=== PATIENT | female | born 1960 | race African-American/Black ===

== ENCOUNTER 2018-02-25 08:48 | Inpatient (IN) | payer MEDICARE, MEDICAID ==
[~2018-02-25] VITALS: Ht 172.7 cm; Wt 108.9 kg
[2018-02-25 12:39] VITALS: BP 172/112
[2018-02-25] MEDS ORDERED: Enalaprilat 2.5mg/2ml Inj IV PRN (13:15)
[2018-02-25] MEDS ORDERED: Nitroglycerin Subl 0.4mg tab SL PRN (13:15)
[2018-02-25] MEDS ORDERED: Cyclobenzaprine 10mg Tab ORAL PRN (13:15)
[2018-02-25] MEDS ORDERED: Albuterol/Ipratropium 3ml neb HHN PRN (13:15)
[2018-02-25] MEDS ORDERED: Miralax 17gm pkt ORAL PRN (13:15)
[2018-02-25] MEDS ORDERED: dilTIAZem HCl 25mg/5ml Inj IV PRN (13:15)
[2018-02-25] MEDS ORDERED: LORazepam 0.5mg tab ORAL PRN (13:15)
--- NOTE | 2018-02-25 13:16 | Consultation ---
History of Present Illness General Date patient seen: Feb 25, 2018 Present Illness HPI 57 year old female with hx of HTN, COPD, intermittent compliance, felt numbness on right side of her face with some facial droop with arm and leg weakness, She was taken to [facility]. She had CT of head. Her BP was uncontrolled. [place] [facility] [place] Allergies: Coded Allergies: No Known Allergies (Unverified , 02/25/18) Medication History Scheduled Amlodipine Besylate* (Amlodipine Besylate*), 10 MG ORAL DAILY, (Reported) Fluticasone/Salmeterol (Advair 250-50 Diskus), 2 PUFF INH EVERY 12 HOURS, ( Reported) Furosemide* (Lasix*), 20 MG ORAL DAILY, (Reported) Gabapentin* (Gabapentin*), 300 MG ORAL THREE TIMES A DAY, (Reported) Potassium Chloride (Potassium Chloride), 10 MEQ ORAL DAILY, (Reported) Scheduled PRN Cyclobenzaprine Hcl* (Flexeril*), 10 MG ORAL THREE TIMES A DAY PRN for Muscle Spasm, (Reported) Hydrocodone Bit/Acetaminophen 5-325* ([place] 5-325*), 1 TAB ORAL Q4H PRN for For Pain, (Reported) Lorazepam* (Ativan*), 0.5 MG ORAL HS PRN for For Anxiety, (Reported) Patient History Healthcare decision maker Resuscitation status Advanced Directive on File Past Medical/Surgical History Past Medical/Surgical History: (1) Morbid obesity (2) COPD (chronic obstructive pulmonary disease) (3) Non-compliance Review of Systems All Other Systems: negative except mentioned in HPI Physical Exam General Appearance: WD/WN Lines, tubes and drains: peripheral HEENT: normocephalic, atraumatic Neck: non-tender, normal alignment Respiratory/Chest: chest wall non-tender, lungs clear Breasts: no masses Cardiovascular/Chest: normal peripheral pulses Abdomen: normal bowel sounds Genitourinary/Rectal: normal genital exam Extremities: normal range of motion Skin Exam: normal pigmentation Last 24 Hour Vital Signs Date Time Temp Pulse Resp B/P (MAP) Pulse Ox O2 Delivery O2 Flow Rate FiO2 02/25/18 12:39 97.7 70 20 172/112 (132) 98 97.7 02/25/18 12:39 Room Air Height (Feet): 5 Height (Inches): 8.00 Weight (Pounds): 241 Medications Current Medications Medications (Trade) Dose Ordered Sig/Re Route PRN Reason Start Time Stop Time Status Last Admin Dose Admin Acetaminophen (Tylenol) 650 mg Q4H PRN ORAL FEVER 02/25/18 13:15 03/27/18 13:14 UNV Albuterol/ Ipratropium (Albuterol/ Ipratropium) 3 ml EVERY 4 HOURS PRN HHN Shortness of Breath 02/25/18 13:15 03/02/18 13:14 UNV Amlodipine Besylate (Norvasc) 10 mg DAILY ORAL 02/26/18 09:00 03/28/18 08:59 Aspirin (ASA) 325 mg DAILY ORAL 02/26/18 09:00 03/28/18 08:59 Clonidine HCl (Catapres Tab) 0.1 mg Q6H PRN ORAL SBP>160 02/25/18 13:15 03/27/18 13:14 Cyclobenzaprine HCl (Flexeril) 10 mg TIDPRN PRN ORAL Muscle Spasm 02/25/18 13:15 03/27/18 13:14 Diltiazem HCl (Cardizem) 10 mg EVERY HOUR PRN IV heart rate more than 120, 02/25/18 13:15 03/27/18 13:14 UNV Enalaprilat (Vasotec) 2.5 mg EVERY 6 HOURS PRN IV sbp more than 160 02/25/18 13:15 03/27/18 13:14 UNV Furosemide (Lasix) 20 mg DAILY ORAL 02/26/18 09:00 03/28/18 08:59 Gabapentin (Neurontin) 300 mg THREE TIMES A DAY ORAL 02/25/18 18:00 03/27/18 17:59 Heparin Sodium (Porcine) (Heparin 5000 units/ml) 5,000 units EVERY 12 HOURS SUBQ 02/25/18 21:00 03/27/18 20:59 UNV Heparin Sodium (Porcine) (Heparin 5000 units/ml) 5,000 units EVERY 8 HOURS SUBQ 02/25/18 14:00 03/27/18 13:59 Irbesartan (Avapro) 80 mg DAILY ORAL 02/25/18 13:15 03/27/18 13:14 UNV Labetalol HCl (Normodyne) 20 mg EVERY HOUR PRN IV sbp more than 160 02/25/18 13:15 03/27/18 13:14 UNV Lorazepam (Ativan) 0.5 mg HSPRN PRN ORAL For Anxiety 02/25/18 13:15 03/04/18 13:14 Nitroglycerin (Ntg) 0.4 mg Every 5 Minutes PRN SL Prn Chest Pain 02/25/18 13:15 03/27/18 13:14 UNV Ondansetron HCl (Zofran) 4 mg Q6H PRN IVP Nausea & Vomiting 02/25/18 13:15 03/27/18 13:14 UNV Pantoprazole (Protonix) 40 mg DAILY ORAL 02/26/18 09:00 03/28/18 08:59 UNV Polyethylene Glycol (Miralax) 17 gm DAILYPRN PRN ORAL Constipation 02/25/18 13:15 03/27/18 13:14 UNV Salmeterol Xinafoate/ Fluticasone (Advair 250/50 Diskus) 1 puffs BID INH 02/25/18 18:00 03/27/18 17:59 Temazepam (Restoril) 15 mg HSPRN PRN ORAL Insomnia 02/25/18 13:15 03/04/18 13:14 UNV Assessment/Plan Problem List: (1) Hypertensive emergency ICD Codes: I16.1 - Hypertensive emergency SNOMED: 958487772080690 (2) TIA (transient ischemic attack) ICD Codes: G45.9 - Transient cerebral ischemic attack, unspecified SNOMED: 537302355 (3) Non-compliance ICD Codes: Z91.19 - Patient's noncompliance with other medical treatment and regimen SNOMED: 1915268 (4) COPD (chronic obstructive pulmonary disease) ICD Codes: J44.9 - Chronic obstructive pulmonary disease, unspecified SNOMED: 37296321 (5) Hypertension ICD Codes: I10 - Essential (primary) hypertension SNOMED: 60800825 (6) Morbid obesity ICD Codes: E66.01 - Morbid (severe) obesity due to excess calories SNOMED: 984061957 Assessment/Plan echo monitor BP respiratory treatment check electrolytes cardio f/u neuro evaluation. Charisse Manriquez MD Feb 25, 2018 13:16
[2018-02-25] MEDS ORDERED: Heparin 5000 units/ml inj SUBQ SCH (14:00)
[2018-02-25] MEDS ORDERED: CYCLOBENZAPRINE10 MG ORAL (14:26)
[2018-02-25] MEDS ORDERED: ADVAIR 250/501 PUFFS INH (14:26)
[2018-02-25] MEDS ORDERED: AMLODIPINE BESY10 MG ORAL (14:26)
[2018-02-25] MEDS ORDERED: NORCO 5-325 TA1 EACH ORAL (14:26)
[2018-02-25] MEDS ORDERED: POTASSIUM CHLO10 ME3 ORAL (14:26)
[2018-02-25] MEDS ORDERED: ATIVAN0.5 MG ORAL (14:26)
[2018-02-25] MEDS ORDERED: GABAPENTIN300 MG ORAL (14:26)
[2018-02-25] MEDS ORDERED: FUROSEMIDE20 M1 ORAL (14:26)
--- NOTE | 2018-02-25 16:17 | Diagnostic Imaging Report ---
Indication: Heaviness and weakness on the right side of face x7 days Technique: sagittal T1 fast spin echo, axial T1 FLAIR, axial T2 FLAIR, axial T2 FS PROPELLER, axial T2* GRE, axial diffusion weighted images. ADC and exponential ADC maps generated Comparison: none Findings: Metallic objects within the patient's hair apparently could not be removed, results in susceptibility artifact that obscures significant portions of nearly every sequence On the diffusion-weighted images, much of the left frontal lobe, most of the left temporal and parietal lobes, all of the left occipital lobe, and all of the left side of the cerebellum are obscured. In the visualized portions of the brain, no evidence of restricted diffusion is demonstrated. Artifact obscures much of the right cerebellum and left frontal lobe on the T2*images. Visualized portions demonstrate no evidence of acute hemorrhage or blood products. The inferior brain is partially obscured on the T1 and T2 FLAIR images, but no evidence of acute hemorrhage is evident. Artifact obscures much of the left cerebellum and brainstem, left temporal and parietal lobes and a portion of the bilateral frontal lobes on the T2-weighted images. The visualized portions of the brain demonstrate a lacunar infarct in the left edith, best appreciated on the T2 FLAIR images. No gross mass effect or midline shift or edema. Grossly normal size ventricles and extra axial CSF spaces. Empty sella is incidentally noted. Visualized orbits and sinuses are unremarkable. Impression: Extremely limited exam due to complete or near complete obscuration of much of the brain due to susceptibility artifact from metallic and apparently unremarkable hair objects. Significant pathology could be missed Visible portions of the brain demonstrate old lacunar infarct in the left side of the edith Visible portions of brain demonstrate no evidence of acute intracranial hemorrhage, edema, or infarct Incidental finding of empty sella
[2018-02-25] MEDS ORDERED: Norco 5mg/325mg tab ORAL PRN (16:45)
[2018-02-25 18:06] VITALS: BP 127/97
[2018-02-25] MEDS ORDERED: Labetalol 5mg/ml 20ml vial IV PRN (18:30)
[2018-02-25] MEDS: Advair 250/50 Inhaler - 14 dose INH SCH (19:08)
[2018-02-25 20:00] VITALS: BP 148/91
[2018-02-25] MEDS: Heparin 5000 units/ml inj SUBQ SCH (20:55)
--- NOTE | 2018-02-25 21:00 | Cardiology Progress Note ---
Assessment/Plan Assessment/Plan [id number] increas lisinopril keeop on nrovasc dc avodart may need clonidien or bb consider mcmanus for secondary htn including sleep study to ro eusebia Objective Last 24 Hour Vital Signs Date Time Temp Pulse Resp B/P (MAP) Pulse Ox O2 Delivery O2 Flow Rate FiO2 02/25/18 19:10 79 18 97 Room Air 21 02/25/18 19:08 78 18 97 Room Air 21 02/25/18 19:08 78 18 Room Air 21 02/25/18 18:06 97.7 72 20 127/97 (107) 98 97.7 02/25/18 15:47 85 02/25/18 14:06 172/112 02/25/18 13:15 172/112 02/25/18 12:39 97.7 70 20 172/112 (132) 98 97.7 02/25/18 12:39 Room Air 02/25/18 12:17 76 Laboratory Tests Test 02/25/18 16:35 Troponin I 0.003 ng/mL (0.000-0.056) Sang Valles MD Feb 25, 2018 21:00
[2018-02-25] MEDS: Lisinopril 20mg tab ORAL SCH (22:00)
[2018-02-26] VITALS: BP 126/92
[2018-02-26 04:00] VITALS: BP 121/63
--- NOTE | 2018-02-26 04:30 | Consultation ---
DATE OF CONSULTATION: 02/25/2018 CARDIOLOGY CONSULTATION CONSULTING PHYSICIAN: Sang Valles M.D. REFERRING PHYSICIAN: Yariel Bhandari M.D. REASON FOR REFERRAL: Poorly-controlled hypertension. HISTORY OF PRESENT ILLNESS: This is an elderly female, who has noticed for the past week and a half or so that she has had some right-sided facial, arm, and leg numbness. She said occasionally she has to hold herself when she walks because she feels off balance and occasionally when she is standing up washing dishes, she feels that her right leg starts to shake. In any case, the patient was seen by Dr. Bhandari and was eventually sent to an emergency room and went to [facility], which was too busy, and she decided to leave and went to [place] where she was admitted yesterday, evaluated, and subsequently transferred to [facility] for further therapy. 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 She walks, but she does notice that when she goes up hills for her home, she has some shortness of breath. There is no pain, pressure, or tightness. There is no PND, no orthopnea, no palpitations, and no lightheadedness on standing. PAST MEDICAL HISTORY: Positive for high blood pressure. No history of heart attack, cancer, stroke, diabetes, or cholesterol problems. No hepatitis or tuberculosis. She does have a history of possible COPD. No history of ulcers. No kidney problems, liver problems, or thyroid problems. She has a history of sickle cell trait. No HIV, AIDS, or blood clots or bleeding disorders of any kind or any gynecological problems. She has had surgeries including vaginal deliveries and a tubal ligation. MEDICATIONS: Albuterol inhaler. She is on amlodipine 10 mg daily, Zithromax, cyclobenzaprine, Benadryl, Advair Diskus, Lasix 20 mg daily, gabapentin 300 mg three times daily, hydrochlorothiazide 50 mg once daily, [place], cortisone, lisinopril 20 mg daily, lorazepam 0.5 mg at nighttime as needed, meloxicam 15 mg, Naprosyn 500 mg two times daily, potassium, and promethazine. ALLERGIES: None. SOCIAL HISTORY: She smokes, but she quit approximately one year ago, and she does drink alcoholic beverages rarely. No drug use. REVIEW OF SYSTEMS: GASTROINTESTINAL: Negative. GENITOURINARY: Negative. PULMONARY: Negative. CONSTITUTIONAL: Negative. NEUROLOGIC: As mentioned in the HPI. There is no paralysis. No blurred vision or double vision, unless she looks to the extreme right. PHYSICAL EXAMINATION: GENERAL: Shows to be obese elderly female, in no respiratory distress. HEENT: Unremarkable. NECK: Supple. No jugular venous distention. No abdominojugular reflux noted. LUNGS: Appeared to be clear to auscultation and percussion. CARDIAC: Regular rate and rhythm. No heaves or thrills noted. ABDOMEN: Soft and nontender. Positive bowel sounds. EXTREMITIES: There is no clubbing, cyanosis, or edema. NEUROLOGIC: She moves all four extremities. LABORATORY VALUES AND DIAGNOSTIC DATA: Data from [place] was reviewed. She had probably a CT scan of her brain, basically no significant mass effects were being noted. Chest x-ray shows lungs are clear. No pleural effusion was seen. Cardiac versus mediastinal silhouette was normal. Her blood pressure, however, at [place] they ranged anywhere between 251/153 to 142/88, subsequently uncontrolled of her blood pressure. Troponin was 0.03 so far. An EKG was performed at [place] that is showing sinus rhythm, leftward axis progression. Unfortunately, I am not able to find any other meaningful labs. She had an INR of 1 and troponin was 0.02 at [place]. Creatinine is 0.83, glucose of 107, sodium 137, potassium 3.7, chloride 101, bicarb 26, and BUN of 17. ASSESSMENT: 1. Hypertensive emergency. 2. Poorly-controlled hypertension. 3. Obesity. 4. History of sickle cell trait. 5. COPD history with occasional wheezing. PLAN: Dr. Bhandari, this patient was seen in cardiac consultation. The patient's medications have been reviewed. The patient should be continued on Norvasc 10 mg a day. She is getting a higher dose of Lasix at home to be continued. She is on lisinopril 20 mg, if not been effective, I would discontinue the Avapro that she is getting through and put her on some lisinopril 40 mg daily. Her heart rate is not significantly tachycardic, may require administration of beta-blockers and/or clonidine for control. As outpatient, she may require further evaluation for the cause of her hypertension that appears to be poorly controlled. She should be discontinued off the non-steroidals if possible and should be considered for evaluation of possible sleep disorder such as sleep apnea, which may be contributing to her hypertension. Control of blood pressure with the combination of medications is important. This was discussed with the patient. Sang Valles M.D. DR: GURVINDER JOB#: [id number] CC:
[2018-02-26 07:17] LABS: BASOPHILS % (AUTO) 1.2 % (0.0-2.0); EOSINOPHILS % (AUTO) 5.3 % (0.0-3.0); HEMATOCRIT 43.8 % (37.0-47.0); HEMOGLOBIN 14.4 G/DL (12.0-16.0); LYMPHOCYTES % (AUTO) 41.6 % (20.0-45.0); MEAN CORPUSCULAR VOLUME 88 FL (80-99); PLATELET COUNT 179 K/UL (150-450); RED BLOOD COUNT 4.98 M/UL (4.20-5.40); RED CELL DISTRIBUTION WIDTH 12.8 % (11.6-14.8); WHITE BLOOD COUNT 5.3 K/UL (4.8-10.8)
[2018-02-26 08:00] VITALS: BP 109/73
[2018-02-26] MEDS: Lisinopril 20mg tab ORAL SCH ×2 (08:37→17:25)
[2018-02-26] MEDS: Heparin 5000 units/ml inj SUBQ SCH ×2 (08:38→21:00)
[2018-02-26 08:52] LABS: ALANINE AMINOTRANSFERASE 22 U/L (12-78); ALBUMIN 3.5 G/DL (3.4-5.0); ALBUMIN/GLOBULIN RATIO 0.9 (1.0-2.7); ALKALINE PHOSPHATASE 81 U/L (46-116); ANION GAP 10 mmol/L (5-15); ASPARTATE AMINO TRANSFERASE 16 U/L (15-37); BILIRUBIN,TOTAL 0.5 MG/DL (0.2-1.0); BLOOD UREA NITROGEN 27 mg/dL (7-18); CALCIUM 9.5 MG/DL (8.5-10.1); CARBON DIOXIDE 28 MMOL/L (21-32); CHLORIDE 103 MMOL/L (98-107); CHOLESTEROL 206 MG/DL (< 200); CREATININE 1.2 MG/DL (0.55-1.30); HDL CHOLESTEROL 50 MG/DL (40-60); PHOSPHORUS 4.2 MG/DL (2.5-4.9); POTASSIUM 3.4 MMOL/L (3.5-5.1); SODIUM 141 MMOL/L (136-145); TRIGLYCERIDES 103 MG/DL (30-150)
[2018-02-26] MEDS: Advair 250/50 Inhaler - 14 dose INH SCH ×2 (09:32→19:25)
--- NOTE | 2018-02-26 10:42 | Consultation ---
History of Present Illness General Date patient seen: Feb 25, 2018 Present Illness HPI the pt is a 57 yo female, came in for right-sided facial, arm, and leg numbness. The pt stated that she only sleeps 45 min a day. the pt is on ativan and has anxiety and depression. the pt has no si/hi Allergies: Coded Allergies: No Known Allergies (Unverified , 02/25/18) Medication History Scheduled Amlodipine Besylate* (Amlodipine Besylate*), 10 MG ORAL DAILY, (Reported) Fluticasone/Salmeterol (Advair 250-50 Diskus), 2 PUFF INH EVERY 12 HOURS, ( Reported) Furosemide* (Lasix*), 20 MG ORAL DAILY, (Reported) Gabapentin* (Gabapentin*), 300 MG ORAL THREE TIMES A DAY, (Reported) Potassium Chloride (Potassium Chloride), 10 MEQ ORAL DAILY, (Reported) Scheduled PRN Cyclobenzaprine Hcl* (Flexeril*), 10 MG ORAL THREE TIMES A DAY PRN for Muscle Spasm, (Reported) Hydrocodone Bit/Acetaminophen 5-325* (Lillie 5-325*), 1 TAB ORAL Q4H PRN for For Pain, (Reported) Lorazepam* (Ativan*), 0.5 MG ORAL HS PRN for For Anxiety, (Reported) Patient History Limited by: medical condition History Provided By: Patient, Medical Record, PMD Healthcare decision maker Resuscitation status Advanced Directive on File Past Medical/Surgical History Past Medical/Surgical History: (1) Hypertension Review of Systems Psychiatric: Reports: prior hx, anxiety, depressed feelings Physical Exam General Appearance: no apparent distress, alert Neurologic: oriented x 3, responsive, depressed affect Last 24 Hour Vital Signs Date Time Temp Pulse Resp B/P (MAP) Pulse Ox O2 Delivery O2 Flow Rate FiO2 02/26/18 09:34 64 18 99 Room Air 21 02/26/18 09:32 64 18 98 Room Air 21 02/26/18 09:00 Room Air 02/26/18 08:37 109/73 02/26/18 08:37 63 109/73 02/26/18 08:00 97.9 63 20 109/73 (85) 96 97.9 02/26/18 08:00 63 02/26/18 06:27 126/67 02/26/18 04:00 62 02/26/18 04:00 97.5 62 18 121/63 (82) 96 97.5 02/26/18 00:00 97.1 65 18 126/92 (103) 97 97.1 02/26/18 00:00 68 02/25/18 22:02 156/95 02/25/18 22:00 156/95 02/25/18 21:00 Room Air 02/25/18 20:00 97.2 95 21 148/91 (110) 97 97.2 02/25/18 20:00 95 02/25/18 19:10 79 18 97 Room Air 21 02/25/18 19:08 78 18 97 Room Air 21 02/25/18 19:08 78 18 Room Air 21 02/25/18 18:06 97.7 72 20 127/97 (107) 98 97.7 02/25/18 15:47 85 02/25/18 14:06 172/112 02/25/18 13:15 172/112 02/25/18 12:39 97.7 70 20 172/112 (132) 98 97.7 02/25/18 12:39 Room Air 02/25/18 12:17 76 Intake and Output 02/25/18 02/26/18 19:00 07:00 Intake Total 600 ml 100 ml Balance 600 ml 100 ml Intake Oral 600 ml Other 100 ml # Voids 1 2 Laboratory Tests Test 02/25/18 16:35 02/26/18 06:05 Troponin I 0.003 ng/mL (0.000-0.056) 0.009 ng/mL (0.000-0.056) White Blood Count 5.3 K/UL (4.8-10.8) Red Blood Count 4.98 M/UL (4.20-5.40) Hemoglobin 14.4 G/DL (12.0-16.0) Hematocrit 43.8 % (37.0-47.0) Mean Corpuscular Volume 88 FL (80-99) Mean Corpuscular Hemoglobin 29.0 PG (27.0-31.0) Mean Corpuscular Hemoglobin Concent 33.0 G/DL (32.0-36.0) Red Cell Distribution Width 12.8 % (11.6-14.8) Platelet Count 179 K/UL (150-450) Mean Platelet Volume 9.4 FL (6.5-10.1) Neutrophils (%) (Auto) 45.0 % (45.0-75.0) Lymphocytes (%) (Auto) 41.6 % (20.0-45.0) Monocytes (%) (Auto) 7.0 % (1.0-10.0) Eosinophils (%) (Auto) 5.3 % (0.0-3.0) H Basophils (%) (Auto) 1.2 % (0.0-2.0) Prothrombin Time 10.5 SEC (9.30-11.50) Prothromb Time International Ratio 1.0 (0.9-1.1) Activated Partial Thromboplast Time 29 SEC (23-33) Sodium Level 141 MMOL/L (136-145) Potassium Level 3.4 MMOL/L (3.5-5.1) L Chloride Level 103 MMOL/L (98-107) Carbon Dioxide Level 28 MMOL/L (21-32) Anion Gap 10 mmol/L (5-15) Blood Urea Nitrogen 27 mg/dL (7-18) H Creatinine 1.2 MG/DL (0.55-1.30) Estimat Glomerular Filtration Rate 56.0 mL/min (>60) Glucose Level 105 MG/DL (74-106) Calcium Level 9.5 MG/DL (8.5-10.1) Phosphorus Level 4.2 MG/DL (2.5-4.9) Magnesium Level 2.0 MG/DL (1.8-2.4) Total Bilirubin 0.5 MG/DL (0.2-1.0) Aspartate Amino Transf (AST/SGOT) 16 U/L (15-37) Alanine Aminotransferase (ALT/SGPT) 22 U/L (12-78) Alkaline Phosphatase 81 U/L (46-116) C-Reactive Protein, Quantitative 2.8 mg/dL (0.00-0.90) H Total Protein 7.2 G/DL (6.4-8.2) Albumin 3.5 G/DL (3.4-5.0) Globulin 3.7 g/dL Albumin/Globulin Ratio 0.9 (1.0-2.7) L Triglycerides Level 103 MG/DL (30-150) Cholesterol Level 206 MG/DL (< 200) H LDL Cholesterol 135 mg/dL (<100) H HDL Cholesterol 50 MG/DL (40-60) Cholesterol/HDL Ratio 4.1 (3.3-4.4) Thyroid Stimulating Hormone (TSH) 0.715 uiU/mL (0.358-3.740) Height (Feet): 5 Height (Inches): 8.00 Weight (Pounds): 240 Medications Current Medications Medications (Trade) Dose Ordered Sig/Re Route PRN Reason Start Time Stop Time Status Last Admin Dose Admin Acetaminophen (Tylenol) 650 mg Q4H PRN ORAL FEVER 02/25/18 13:15 03/27/18 13:14 Acetaminophen/ Hydrocodone Bitart (Lillie 5/325) 1 tab Q6H PRN ORAL For Pain 02/25/18 16:45 03/04/18 16:44 Albuterol/ Ipratropium (Albuterol/ Ipratropium) 3 ml Q4H PRN HHN Shortness of Breath 02/25/18 13:15 03/02/18 13:14 Amlodipine Besylate (Norvasc) 10 mg DAILY ORAL 02/26/18 09:00 03/28/18 08:59 Aspirin (ASA) 325 mg DAILY ORAL 02/26/18 09:00 03/28/18 08:59 02/26/18 08:36 Clonidine HCl (Catapres Tab) 0.1 mg EVERY 8 HOURS ORAL 02/25/18 22:00 03/27/18 21:59 02/26/18 06:27 Clonidine HCl (Catapres Tab) 0.1 mg Q6H PRN ORAL SBP>160 02/25/18 13:15 03/27/18 13:14 Cyclobenzaprine HCl (Flexeril) 10 mg TIDPRN PRN ORAL Muscle Spasm 02/25/18 13:15 03/27/18 13:14 Diltiazem HCl (Cardizem) 10 mg Q1H PRN IV heart rate more than 120, 02/25/18 13:15 03/27/18 13:14 Furosemide (Lasix) 20 mg DAILY ORAL 02/26/18 09:00 03/28/18 08:59 02/26/18 08:37 Gabapentin (Neurontin) 300 mg THREE TIMES A DAY ORAL 02/25/18 18:00 03/27/18 17:59 02/26/18 08:36 Heparin Sodium (Porcine) (Heparin 5000 units/ml) 5,000 units EVERY 12 HOURS SUBQ 02/25/18 21:00 03/27/18 20:59 02/26/18 08:38 Hydralazine HCl (Apresoline) 10 mg Q4H PRN IV sbp greater than 170 02/25/18 21:00 03/27/18 20:59 Hydrochlorothiazide (Hydrodiuril) 25 mg DAILY ORAL 02/26/18 09:00 03/28/18 08:59 Lisinopril (Prinivil) 20 mg BID ORAL 02/25/18 21:00 03/27/18 20:59 02/25/18 22:00 Lorazepam (Ativan) 0.5 mg HSPRN PRN ORAL For Anxiety 02/25/18 13:15 03/04/18 13:14 Nitroglycerin (Ntg) 0.4 mg Q5M PRN SL Prn Chest Pain 02/25/18 13:15 03/27/18 13:14 Ondansetron HCl (Zofran) 4 mg Q6H PRN IVP Nausea & Vomiting 02/25/18 13:15 03/27/18 13:14 Pantoprazole (Protonix) 40 mg DAILY ORAL 02/26/18 09:00 03/28/18 08:59 02/26/18 08:35 Polyethylene Glycol (Miralax) 17 gm DAILYPRN PRN ORAL Constipation 02/25/18 13:15 03/27/18 13:14 Salmeterol Xinafoate/ Fluticasone (Advair 250/50 Diskus) 1 puffs BID INH 02/25/18 18:00 03/27/18 17:59 02/26/18 09:32 Temazepam (Restoril) 15 mg HSPRN PRN ORAL Insomnia 02/25/18 13:15 03/04/18 13:14 Assessment/Plan Assessment/Plan MDD Anxiety d/o Ativan prn the pt was reluctant to take ssris/ Yosi Lopez MD Feb 26, 2018 10:42
--- NOTE | 2018-02-26 18:56 | History & Physical ---
History and Physical History & Physicial Dictated for Int Med-Dr Edmonds no. [id number]. Fernando Morales MD Feb 26, 2018 18:56
[2018-02-26 20:00] VITALS: BP 134/76
--- NOTE | 2018-02-26 20:06 | Cardiology Progress Note ---
Assessment/Plan Assessment/Plan 1. Hypertensive emergency. 2. Poorly-controlled hypertension. 3. Obesity. 4. History of sickle cell trait. 5. COPD history with occasional wheezing bp much improved neuro sx have resolved importance of compliance with meds d/w pt risk of rebound htn d/w pt with risk of cva with uncontrolled htn she indicated understanding mri poor study statin? if complaince with med assured as outpt Subjective Cardiovascular: Denies: chest pain, irregular heart rate, lightheadedness, palpitations Respiratory: Denies: shortness of breath Gastrointestinal/Abdominal: Denies: abdominal pain Genitourinary: Denies: burning Objective Last 24 Hour Vital Signs Date Time Temp Pulse Resp B/P (MAP) Pulse Ox O2 Delivery O2 Flow Rate FiO2 02/26/18 19:28 66 16 96 Room Air 21 02/26/18 19:28 66 16 96 Room Air 21 02/26/18 17:25 109/73 02/26/18 16:00 61 02/26/18 13:21 109/73 02/26/18 12:00 74 02/26/18 09:34 64 18 99 Room Air 21 02/26/18 09:32 64 18 98 Room Air 21 02/26/18 09:00 Room Air 02/26/18 08:37 109/73 02/26/18 08:37 63 109/73 02/26/18 08:00 97.9 63 20 109/73 (85) 96 97.9 02/26/18 08:00 63 02/26/18 06:27 126/67 02/26/18 04:00 62 02/26/18 04:00 97.5 62 18 121/63 (82) 96 97.5 02/26/18 00:00 97.1 65 18 126/92 (103) 97 97.1 02/26/18 00:00 68 02/25/18 22:02 156/95 02/25/18 22:00 156/95 02/25/18 21:00 Room Air General Appearance: no apparent distress, alert Neck: supple Cardiovascular: normal rate Respiratory/Chest: lungs clear Abdomen: normal bowel sounds, soft Extremities: no swelling Intake and Output 02/25/18 02/26/18 19:00 07:00 Intake Total 600 ml 100 ml Balance 600 ml 100 ml Intake Oral 600 ml Other 100 ml # Voids 1 2 Laboratory Tests Test 02/26/18 06:05 02/26/18 15:05 White Blood Count 5.3 K/UL (4.8-10.8) Red Blood Count 4.98 M/UL (4.20-5.40) Hemoglobin 14.4 G/DL (12.0-16.0) Hematocrit 43.8 % (37.0-47.0) Mean Corpuscular Volume 88 FL (80-99) Mean Corpuscular Hemoglobin 29.0 PG (27.0-31.0) Mean Corpuscular Hemoglobin Concent 33.0 G/DL (32.0-36.0) Red Cell Distribution Width 12.8 % (11.6-14.8) Platelet Count 179 K/UL (150-450) Mean Platelet Volume 9.4 FL (6.5-10.1) Neutrophils (%) (Auto) 45.0 % (45.0-75.0) Lymphocytes (%) (Auto) 41.6 % (20.0-45.0) Monocytes (%) (Auto) 7.0 % (1.0-10.0) Eosinophils (%) (Auto) 5.3 % (0.0-3.0) H Basophils (%) (Auto) 1.2 % (0.0-2.0) Prothrombin Time 10.5 SEC (9.30-11.50) Prothromb Time International Ratio 1.0 (0.9-1.1) Activated Partial Thromboplast Time 29 SEC (23-33) Sodium Level 141 MMOL/L (136-145) Potassium Level 3.4 MMOL/L (3.5-5.1) L Chloride Level 103 MMOL/L (98-107) Carbon Dioxide Level 28 MMOL/L (21-32) Anion Gap 10 mmol/L (5-15) Blood Urea Nitrogen 27 mg/dL (7-18) H Creatinine 1.2 MG/DL (0.55-1.30) Estimat Glomerular Filtration Rate 56.0 mL/min (>60) Glucose Level 105 MG/DL (74-106) Calcium Level 9.5 MG/DL (8.5-10.1) Phosphorus Level 4.2 MG/DL (2.5-4.9) Magnesium Level 2.0 MG/DL (1.8-2.4) Total Bilirubin 0.5 MG/DL (0.2-1.0) Aspartate Amino Transf (AST/SGOT) 16 U/L (15-37) Alanine Aminotransferase (ALT/SGPT) 22 U/L (12-78) Alkaline Phosphatase 81 U/L (46-116) Troponin I 0.009 ng/mL (0.000-0.056) 0.018 ng/mL (0.000-0.056) C-Reactive Protein, Quantitative 2.8 mg/dL (0.00-0.90) H Total Protein 7.2 G/DL (6.4-8.2) Albumin 3.5 G/DL (3.4-5.0) Globulin 3.7 g/dL Albumin/Globulin Ratio 0.9 (1.0-2.7) L Triglycerides Level 103 MG/DL (30-150) Cholesterol Level 206 MG/DL (< 200) H LDL Cholesterol 135 mg/dL (<100) H HDL Cholesterol 50 MG/DL (40-60) Cholesterol/HDL Ratio 4.1 (3.3-4.4) Thyroid Stimulating Hormone (TSH) 0.715 uiU/mL (0.358-3.740) Sang Valles MD Feb 26, 2018 20:06
[2018-02-27] VITALS: BP 100/69
--- NOTE | 2018-02-27 01:00 | History and Physical Report ---
DATE OF ADMISSION: 02/25/2018 CHIEF COMPLAINT: The patient is a 57-year-old female, presents with complaint of "my blood pressure is too high." HISTORY OF PRESENT ILLNESS: The patient has a history of hypertension. The patient ran out of her antihypertensive medication two months ago. The patient went to her primary care physician on 02/24/2018. The patient was told her blood pressure was in the range of 215/110. The patient was told to go to the emergency room. The patient waited until yesterday to go to [facility] Emergency Room. The patient is transferred to [facility] for insurance purposes. The patient is admitted with chief complaint of uncontrolled hypertension. REVIEW OF SYSTEMS: CONSTITUTIONAL: The patient denies weight loss or weight gain. The patient denies fevers or chills. HEENT: The patient complains of headache. The patient denies ear or throat pain. CHEST: The patient denies wheeze or shortness of breath. CARDIOVASCULAR: The patient denies palpitations or chest pain. ABDOMEN: The patient denies nausea, vomiting, diarrhea, or constipation. GENITOURINARY: The patient denies dysuria or increased frequency of urination. NEUROMUSCULAR: The patient denies seizures or generalized weakness. PAST MEDICAL HISTORY: Significant for hypertension. PAST SURGICAL HISTORY: The patient denies. CURRENT MEDICATIONS: The patient ran out of all her medications two months ago. ALLERGIES: No known drug allergies. SOCIAL HISTORY: The patient is engaged. The patient's fiancee is present. The patient denies tobacco use, having quit in 2011. The patient denies alcohol use. PHYSICAL EXAMINATION: VITAL SIGNS: Temperature 97.1, respirations 18, pulse 65, and blood pressure 126/92. GENERAL: The patient is a well-developed and well-nourished slightly obese, female, in no apparent distress. HEENT: Eyes, pupils are equal and responsive to light and accommodation. Extraocular movements are intact. NECK: Supple without lymphadenopathy. CHEST: Lungs are clear to auscultation bilaterally without wheezes or rales. CARDIOVASCULAR: Regular rhythm and rate. S1 and S2 are normal without murmurs, rubs, or gallops. ABDOMEN: Soft, nontender, and nondistended. Positive bowel sounds. No evidence of hepatosplenomegaly. Currently, no rebound or guarding noted. EXTREMITIES: Negative for clubbing, cyanosis, or edema. RECTAL/GENITAL: Refused. NEUROLOGIC: Cranial nerves II through XII are grossly intact without focal deficits. Motor strength is 5/5 bilaterally. Deep tendon reflexes are 2+ plantar. LABORATORY STUDIES: WBC 5.3, hemoglobin 14.4, hematocrit 43.8, and platelets 179,000. Sodium 141, potassium 3.4, chloride 103, CO2 28, BUN 27, creatinine 1.2, and glucose 105. CT scan of the brain at [facility] was reported as no acute disease. ASSESSMENT AND PLAN: This is a 57-year-old female with: 1. Uncontrolled hypertension. The patient has been started empirically on furosemide and hydrochlorothiazide. Norvasc has been added. The patient's blood pressure is stabilized. Clonidine will be used p.r.n. for systolic greater than 150 or diastolic greater than 100. 2. History of asthma. The patient was previously on Advair 250/50. Continue Advair as above. Fernando Morales M.D. DR: ATIF JOB#: [id number] CC:
[2018-02-27 04:00] VITALS: BP 107/73
[2018-02-27 07:42] LABS: HEMATOCRIT 39.6 % (37.0-47.0); MEAN CORPUSCULAR VOLUME 87 FL (80-99); PLATELET COUNT 185 K/UL (150-450); RED BLOOD COUNT 4.53 M/UL (4.20-5.40); RED CELL DISTRIBUTION WIDTH 12.6 % (11.6-14.8); WHITE BLOOD COUNT 5.8 K/UL (4.8-10.8)
[2018-02-27 08:06] LABS: ANION GAP 6 mmol/L (5-15); BLOOD UREA NITROGEN 28 mg/dL (7-18); CALCIUM 9.1 MG/DL (8.5-10.1); CARBON DIOXIDE 29 MMOL/L (21-32); CHLORIDE 102 MMOL/L (98-107); CREATININE 1.2 MG/DL (0.55-1.30); POTASSIUM 3.8 MMOL/L (3.5-5.1); SODIUM 137 MMOL/L (136-145)
[2018-02-27] MEDS: Advair 250/50 Inhaler - 14 dose INH SCH (08:21)
[2018-02-27] MEDS: Lisinopril 20mg tab ORAL SCH ×2 (08:29→08:53)
[2018-02-27] MEDS: Heparin 5000 units/ml inj SUBQ SCH (08:31)
[2018-02-27] MEDS ORDERED: DIURIL25 MG ORAL (11:08)
[2018-02-27] MEDS ORDERED: LISINOPRIL20 MG ORAL (11:08)
--- NOTE | 2018-02-27 11:14 | Pulmonology Progress Note ---
Assessment/Plan Problems: (1) Hypertensive emergency (2) TIA (transient ischemic attack) (3) Non-compliance (4) COPD (chronic obstructive pulmonary disease) (5) Hypertension (6) Morbid obesity Assessment/Plan BP better cardio note appreciated continue current meds Subjective ROS Limited/Unobtainable: No Constitutional: Reports: no symptoms HEENT: Repors: no symptoms Respiratory: Reports: no symptoms Allergies: Coded Allergies: No Known Allergies (Unverified , 02/25/18) Objective Last 24 Hour Vital Signs Date Time Temp Pulse Resp B/P (MAP) Pulse Ox O2 Delivery O2 Flow Rate FiO2 02/27/18 09:00 Room Air 02/27/18 08:35 77 120/65 02/27/18 08:00 61 02/27/18 06:18 107/73 02/27/18 04:00 71 02/27/18 04:00 98.1 75 17 107/73 (84) 93 98.1 02/27/18 00:00 98.1 68 19 100/69 (79) 93 98.1 02/27/18 00:00 69 02/26/18 21:58 134/76 02/26/18 21:00 Room Air 02/26/18 20:00 97.5 64 19 134/76 (95) 98 97.5 02/26/18 20:00 69 02/26/18 19:28 66 16 96 Room Air 21 02/26/18 19:28 66 16 96 Room Air 21 02/26/18 17:25 109/73 02/26/18 16:00 61 02/26/18 13:21 109/73 02/26/18 12:00 74 Intake and Output 02/26/18 02/27/18 19:00 07:00 Intake Total 240 ml 800 ml Balance 240 ml 800 ml Intake Oral 240 ml 800 ml # Voids 4 3 General Appearance: WD/WN HEENT: normocephalic, atraumatic Respiratory/Chest: chest wall non-tender, lungs clear Breasts: no masses Cardiovascular: normal peripheral pulses Abdomen: normal bowel sounds Extremities: no cyanosis Skin: no rash 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: 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 Laboratory Tests 02/26/18 15:05: Troponin I 0.018 02/27/18 06:15: Troponin I 0.020, White Blood Count 5.8, Red Blood Count 4.53, Hemoglobin 13.0, Hematocrit 39.6, Mean Corpuscular Volume 87, Mean Corpuscular Hemoglobin 28.8, Mean Corpuscular Hemoglobin Concent 32.9, Red Cell Distribution Width 12.6, Platelet Count 185, Mean Platelet Volume 10.7H, Neutrophils (%) (Auto) , Lymphocytes (%) (Auto) , Monocytes (%) (Auto) , Eosinophils (%) (Auto) , Basophils (%) (Auto) , Neutrophils % (Manual) [Pending], Lymphocytes % (Manual) [Pending], Platelet Estimate [Pending], Platelet Morphology [Pending], Sodium Level 137, Potassium Level 3.8, Chloride Level 102, Carbon Dioxide Level 29, Anion Gap 6, Blood Urea Nitrogen 28H, Creatinine 1.2, Estimat Glomerular Filtration Rate 56.0, Glucose Level 109H, Calcium Level 9.1 Current Medications Medications (Trade) Dose Ordered Sig/Re Route PRN Reason Start Time Stop Time Status Last Admin Dose Admin Acetaminophen (Tylenol) 650 mg Q4H PRN ORAL FEVER 02/25/18 13:15 03/27/18 13:14 Acetaminophen/ Hydrocodone Bitart ([place] 5/325) 1 tab Q6H PRN ORAL For Pain 02/25/18 16:45 03/04/18 16:44 Albuterol/ Ipratropium (Albuterol/ Ipratropium) 3 ml Q4H PRN HHN Shortness of Breath 02/25/18 13:15 03/02/18 13:14 Amlodipine Besylate (Norvasc) 10 mg DAILY ORAL 02/26/18 09:00 03/28/18 08:59 02/27/18 08:35 Aspirin (ASA) 325 mg DAILY ORAL 02/26/18 09:00 03/28/18 08:59 02/27/18 08:28 Clonidine HCl (Catapres Tab) 0.1 mg EVERY 8 HOURS ORAL 02/25/18 22:00 03/27/18 21:59 02/27/18 06:18 Clonidine HCl (Catapres Tab) 0.1 mg Q6H PRN ORAL SBP>160 02/25/18 13:15 03/27/18 13:14 Cyclobenzaprine HCl (Flexeril) 10 mg TIDPRN PRN ORAL Muscle Spasm 02/25/18 13:15 03/27/18 13:14 Diltiazem HCl (Cardizem) 10 mg Q1H PRN IV heart rate more than 120, 02/25/18 13:15 03/27/18 13:14 Furosemide (Lasix) 20 mg DAILY ORAL 02/26/18 09:00 03/28/18 08:59 02/27/18 08:28 Gabapentin (Neurontin) 300 mg THREE TIMES A DAY ORAL 02/25/18 18:00 03/27/18 17:59 02/27/18 08:28 Heparin Sodium (Porcine) (Heparin 5000 units/ml) 5,000 units EVERY 12 HOURS SUBQ 02/25/18 21:00 03/27/18 20:59 02/27/18 08:31 Hydralazine HCl (Apresoline) 10 mg Q4H PRN IV sbp greater than 170 02/25/18 21:00 03/27/18 20:59 Hydrochlorothiazide (Hydrodiuril) 25 mg DAILY ORAL 02/26/18 09:00 03/28/18 08:59 Lisinopril (Prinivil) 20 mg BID ORAL 02/25/18 21:00 03/27/18 20:59 02/26/18 17:25 Lorazepam (Ativan) 0.5 mg HSPRN PRN ORAL For Anxiety 02/25/18 13:15 03/04/18 13:14 Nitroglycerin (Ntg) 0.4 mg Q5M PRN SL Prn Chest Pain 02/25/18 13:15 03/27/18 13:14 Ondansetron HCl (Zofran) 4 mg Q6H PRN IVP Nausea & Vomiting 02/25/18 13:15 03/27/18 13:14 Pantoprazole (Protonix) 40 mg DAILY ORAL 02/26/18 09:00 03/28/18 08:59 02/27/18 08:28 Polyethylene Glycol (Miralax) 17 gm DAILYPRN PRN ORAL Constipation 02/25/18 13:15 03/27/18 13:14 Salmeterol Xinafoate/ Fluticasone (Advair 250/50 Diskus) 1 puffs BID INH 02/25/18 18:00 03/27/18 17:59 02/27/18 08:21 Temazepam (Restoril) 15 mg HSPRN PRN ORAL Insomnia 02/25/18 13:15 03/04/18 13:14 Charisse Manriquez MD Feb 27, 2018 11:14
[2018-02-27] MEDS ORDERED: ASPIRIN325 MG ORAL (11:15)
[2018-02-27 12:00] VITALS: BP 120/78
--- NOTE | 2018-02-27 12:36 | General Progress Note ---
Assessment/Plan Status: stable Assessment/Plan MDD Anxiety d/o Ativan prn the pt was reluctant to take ssris provided ro/st Subjective Date patient seen: Feb 27, 2018 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: Reports: anxiety, depressed, emotional problems Allergies: Coded Allergies: No Known Allergies (Unverified , 02/25/18) Objective Last 24 Hour Vital Signs Date Time Temp Pulse Resp B/P (MAP) Pulse Ox O2 Delivery O2 Flow Rate FiO2 02/27/18 09:00 Room Air 02/27/18 08:35 77 120/65 02/27/18 08:00 61 02/27/18 06:18 107/73 02/27/18 04:00 71 02/27/18 04:00 98.1 75 17 107/73 (84) 93 98.1 02/27/18 00:00 98.1 68 19 100/69 (79) 93 98.1 02/27/18 00:00 69 02/26/18 21:58 134/76 02/26/18 21:00 Room Air 02/26/18 20:00 97.5 64 19 134/76 (95) 98 97.5 02/26/18 20:00 69 02/26/18 19:28 66 16 96 Room Air 21 02/26/18 19:28 66 16 96 Room Air 21 02/26/18 17:25 109/73 02/26/18 16:00 61 02/26/18 13:21 109/73 Intake and Output 02/26/18 02/27/18 19:00 07:00 Intake Total 240 ml 800 ml Balance 240 ml 800 ml Intake Oral 240 ml 800 ml # Voids 4 3 Laboratory Tests 02/26/18 15:05: Troponin I 0.018 02/27/18 06:15: Troponin I 0.020, White Blood Count 5.8, Red Blood Count 4.53, Hemoglobin 13.0, Hematocrit 39.6, Mean Corpuscular Volume 87, Mean Corpuscular Hemoglobin 28.8, Mean Corpuscular Hemoglobin Concent 32.9, Red Cell Distribution Width 12.6, Platelet Count 185, Mean Platelet Volume 10.7H, Neutrophils (%) (Auto) , Lymphocytes (%) (Auto) , Monocytes (%) (Auto) , Eosinophils (%) (Auto) , Basophils (%) (Auto) , Differential Total Cells Counted 100, Neutrophils % ( Manual) 49, Lymphocytes % (Manual) 40, Monocytes % (Manual) 7, Eosinophils % ( Manual) 4H, Basophils % (Manual) 0, Band Neutrophils 0, Platelet Estimate Adequate, Platelet Morphology Normal, Red Blood Cell Morphology Normal, Sodium Level 137, Potassium Level 3.8, Chloride Level 102, Carbon Dioxide Level 29, Anion Gap 6, Blood Urea Nitrogen 28H, Creatinine 1.2, Estimat Glomerular Filtration Rate 56.0, Glucose Level 109H, Calcium Level 9.1 Height (Feet): 5 Height (Inches): 8.00 Weight (Pounds): 240 General Appearance: no apparent distress, alert Neurologic: oriented x 3, responsive, depressed affect Yosi Lopez MD Feb 27, 2018 12:36
[2018-02-27 13:22] VITALS: BP 120/78
--- NOTE | 2018-02-27 17:02 | Discharge Summary ---
Discharge Summary Hospital Course Date of Admission Feb 25, 2018 at 11:42 Date of Discharge Feb 27, 2018 at 14:25 Admitting Diagnosis HPI Patito Gaspar is a 57 year old female who was admitted on Feb 25, 2018 at 11:42 for Hypertensive Urgency Hospital Course Last 24 Hour Vital Signs Date Time Temp Pulse Resp B/P (MAP) Pulse Ox O2 Delivery O2 Flow Rate FiO2 02/27/18 13:22 120/78 02/27/18 12:00 97.9 64 17 120/78 (92) 96 97.9 02/27/18 09:00 Room Air 02/27/18 08:35 77 120/65 02/27/18 08:25 60 18 96 Room Air 21 02/27/18 08:16 56 18 96 Room Air 21 02/27/18 08:00 61 02/27/18 06:18 107/73 02/27/18 04:00 71 02/27/18 04:00 98.1 75 17 107/73 (84) 93 98.1 02/27/18 00:00 98.1 68 19 100/69 (79) 93 98.1 02/27/18 00:00 69 02/26/18 21:58 134/76 02/26/18 21:00 Room Air 02/26/18 20:00 97.5 64 19 134/76 (95) 98 97.5 02/26/18 20:00 69 02/26/18 19:28 66 16 96 Room Air 21 02/26/18 19:28 66 16 96 Room Air 21 02/26/18 17:25 109/73 Physical Exam General: No acute distress, awake and alert HEENT: NCAT, sclera anicteric, PERRL, EOMI. Neck: Supple, no significant jugular venous distention, Lungs: Good inspiratory effort, no Wheeze or Rales. Heart: Regular rate and rhythm, normal S1/S2, no murmurs Abdomen: soft, nontender, nondistended. Normoactive bowel sounds, Morbid Obesity. / Rectal: Refused and deferred. Extremities: No Cyanosis , clubbing or edema. Neuro: A&O x 3, Able to move all extremities Skin: warm, no rashes or lesions Psych: Normal mood and affect Discharge Discharge Disposition Patient was discharged to Home () Yariel Bhandari MD Feb 27, 2018 17:02
--- NOTE | 2018-02-28 00:15 | Discharge Summary ---
DATE OF ADMISSION: 02/25/2018 DATE OF DISCHARGE: 02/27/2018 HISTORY AND HOSPITAL COURSE: This is a 57-year-old very delightful female with past medical history significant for hypertension and COPD who presented to the hospital initially to [facility] emergency room. The patient was noted to have blood pressure of 215/110, and subsequently was transferred to [facility] due to the hypertensive urgency. Throughout the hospital course, the patient was consulted with Dr. Sang Valles from Cardiology and Dr. Charisse Manriquez from Pulmonary Critical Care. The patient's status gradually improved, and the blood pressure became more controlled, and subsequently the patient was discharged home today to be followed up as outpatient with my office. FINAL DIAGNOSES: 1. Hypertension. 2. Hypertensive urgency. 3. Morbid obesity. 4. COPD. 5. Noncompliant. 6. TIA. MEDICATIONS ON DISCHARGE: Continue discharge medication list. ACTIVITY: As tolerated. DIET: Cardiac diet. FOLLOWUP: The patient was advised to follow up in my office within one week. Yariel Bhandari M.D. DR: MICAHEL JOB#: [id number] CC:
== END 2018-02-27 14:25 | disposition home or self-care (01) | DRG 305 ==
LOC: 2E 11:42
DX: I16.0 Hypertensive urgency (principal); E66.01 Morbid (severe) obesity due to excess calories; J44.9 Chronic obstructive pulmonary disease, unspecified; Z91.19 Patient's noncompliance with other medical treatment and regimen; Z87.891 Personal history of nicotine dependence; D57.3 Sickle-cell trait; F41.8 Other specified anxiety disorders; J45.909 Unspecified asthma, uncomplicated; Z86.73 Personal history of transient ischemic attack (TIA), and cerebral infarction without residual deficits
CPT/HCPCS: 36415; 70551; 80048; 80053; 80061; 83735; 84100; 84443; 84484; 85007; 85025; 85610; 85730; 86140; 93306; 93880; 94640; 94664; J8499